=== PATIENT | female | born 1985 | race African-American/Black ===

== ENCOUNTER 2020-08-24 10:11 | Emergency (ER) | payer OTHER ==
[~2020-08-24] VITALS: Ht 165.1 cm; Wt 97.5 kg
[2020-08-24] MEDS ORDERED: ONDANSETRON HCL INJ 2MG/ML 2ML 2 MG/ML VIAL IV STA (10:31)
[2020-08-24] MEDS ORDERED: SODIUM CHLORIDE 0.9% 1000ML 1,000 ML IV STA (10:31)
[2020-08-24] MEDS ORDERED: KETOROLAC TROMETHAMINE 30 MG/ML VIAL IV STA (10:31)
[2020-08-24] MEDS ORDERED: SODIUM CHLORIDE FLUSH 10 ML SYR INJ PRN (10:45)
[2020-08-24] MEDS ORDERED: KETOROLAC TROMETHAMINE 30 MG/ML VIAL ONE (10:52)
[2020-08-24] MEDS ORDERED: METHYLPREDNISOLONE SOD SUCC 125 MG/2ML VIAL IV STA (10:58)
[2020-08-24] MEDS ORDERED: MORPHINE SULFATE INJ 4 MG/ML INJ 1ML IV STA (10:58)
[2020-08-24] MEDS ORDERED: METHYLPREDNISOLONE SOD SUCC 125 MG/2ML VIAL ONE (11:22)
[2020-08-24] MEDS ORDERED: MORPHINE SULFATE INJ 4 MG/ML INJ 1ML ONE (11:23)
[2020-08-24] MEDS ORDERED: ULTRAM50 MG PO (13:33)
[2020-08-24] MEDS ORDERED: ONDANSETRON ODT4 MG PO (13:33)
[2020-08-24] MEDS ORDERED: PREDNISONE20 MG PO ×2 (13:33→13:42)
[2020-08-24 13:39] VITALS: BP 116/68
== END 2020-08-24 13:52 | disposition home or self-care (01) ==
LOC: FSED 10:15
DX: R10.11 Right upper quadrant pain (principal); R11.0 Nausea; E11.65 Type 2 diabetes mellitus with hyperglycemia; E86.0 Dehydration; K50.90 Crohn's disease, unspecified, without complications; K76.0 Fatty (change of) liver, not elsewhere classified; J45.909 Unspecified asthma, uncomplicated; Z86.73 Personal history of transient ischemic attack (TIA), and cerebral infarction without residual deficits
CPT/HCPCS: 36415; 71046; 76705; 80048; 80076; 81003; 83690; 85025; 93005; 96374; 96375; 96376; 99284; J1885; J2270; J2405; J2930; J7030